=== PATIENT | female | born 1955 | race Caucasian/White ===

== ENCOUNTER 2019-12-29 06:20 | Inpatient (IN) ==
--- NOTE | 2019-11-30 09:25 | PAT Medication Instructions ---
Medication Instructions Date of Service November 30, 2019 Home Medications Medications Hair, Skin, Nails with Biotin 1 dose PO DAILY ascorbic acid (vitamin C) [Vitamin C] 500 mg PO QAM benzonatate 200 mg PO TID PRN celecoxib [Celebrex] 200 mg PO QAM famotidine 20 mg PO DAILY PRN fluticasone propionate 1 spray INTRANASAL DAILY hydrochlorothiazide 25 mg PO UD lisinopril 20 mg PO QPM multivitamin 1 tab PO QAM tramadol 50 mg PO TID trazodone 0.25 tab PO HS cholecalciferol (vitamin D3) [Vitamin D3] 2,000 unit PO QAM ASK your surgeon for instructions celecoxib [Celebrex] 200 mg PO QAM STOP taking 2 weeks before surgery Hair, Skin, Nails with Biotin 1 dose PO DAILY DO NOT take the morning of surgery cholecalciferol (vitamin D3) [Vitamin D3] 2,000 unit PO QAM multivitamin 1 tab PO QAM hydrochlorothiazide 25 mg PO UD ascorbic acid (vitamin C) [Vitamin C] 500 mg PO QAM benzonatate 200 mg PO TID PRN Take morning of surgery With a small sip of water, OTHERWISE NOTHING TO EAT OR DRINK AFTER MIDNIGHT: tramadol 50 mg PO TID (okay to take up to 4 hours prior to surgery if needed) famotidine 20 mg PO DAILY PRN (if needed) fluticasone propionate 1 spray INTRANASAL DAILY (if needed) Take evening before surgery tramadol 50 mg PO TID trazodone 0.25 tab PO HS lisinopril 20 mg PO QPM benzonatate 200 mg PO TID PRN (if needed) Other Notes If you have any questions please call us at [phone] or [phone] or [phone] or [phone]
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
[2019-11-30 12:33] LABS: Appearance Urine Clear (Clear); Bilirubin Urine Negative (Negative); Blood Urine Negative (Negative); Color Urine Yellow; Glucose Urine UA Negative (Negative); Ketones Urine Trace (Negative); Leukocyte Esterase Urine Negative (Negative); Nitrite Urine Negative (Negative); Protein Urine Negative (Negative); Specific Gravity Urine 1.014 (1.000-1.030); Urobilinogen Urine Negative (Negative); pH Urine 6.5 (4.5-7.5)
[2019-11-30 12:34] LABS: Basophils # (auto) 0.06 K/uL (0-0.2); Basophils % (auto) 0.6 %; Eosinophils # (auto) 0.12 K/uL (0-0.5); Eosinophils % (auto) 1.3 %; Hematocrit (blood only) 42.1 % (37-47); Hemoglobin 14.6 g/dL (12.0-16.0); Immature Granulocytes # (auto) 0.03 K/uL (0.00-0.02); Immature Granulocytes % (auto) 0.3 %; Lymphocytes # (auto) 2.34 K/uL (1.2-3.4); Lymphocytes % (auto) 24.9 %; Mean Corpuscular Hgb Conc 34.7 g/dL (32-36); Mean Corpuscular Volume 86.6 fL (80-100); Mean Platelet Volume 10.2 fL (7.4-10.4); Monocytes # (auto) 0.63 K/uL (0.11-0.59); Monocytes % (auto) 6.7 %; Neutrophils % (auto) 66.2 %; Platelet Count 300 K/uL (130-400); RDW Coefficient of Variation 12.7 % (11.5-14.5); RDW Standard Deviation 40.7 fL (36.4-46.3); Red Blood Count 4.86 M/uL (4.2-5.4); White Blood Count 9.38 K/uL (4.8-10.8)
--- NOTE | 2019-11-30 12:41 | XRay Report ---
TWO VIEW CHEST CLINICAL HISTORY: Preoperative examination. FINDINGS: PA and lateral chest radiographs are obtained. No prior studies are available for compariso n at the time of dictation. The cardiomediastinal silhouette is unremarkable. The lungs and pleural spaces are clear. There is no pneumothorax. The skeletal structures are osteopenic. The bony thorax a ppears intact. Degenerative change is noted throughout the thoracic spine. IMPRESSION: No active disease in the chest. ACT 112: Negative or not required by law. Electronically signed by: Aris Benjamin M.D. 11/30/2019 12:40 PM
[2019-11-30 12:44] LABS: INR 1.1 (0.9-1.1); Partial Thromboplastin Time 26.6 Seconds (21.0-31.0); Prothrombin Time 10.9 Seconds (9.0-12.0)
[2019-11-30 13:10] LABS: Estimated Average Glucose 111 mg/dl; Hemoglobin A1C 5.5 % (4.5-5.6)
[2019-11-30 13:32] LABS: Albumin Level 4.2 gm/dl (3.4-5.0); BUN Creatinine Ratio 21.4 (10-20); Calcium 9.8 mg/dl (8.5-10.1); Creatinine Clr Calc Pharmacy 67.9 ml/min; Est GFR (Non-African American) 62.2; Potassium 3.9 mmol/L (3.5-5.1)
--- NOTE | 2019-11-30 15:06 | Electrocardiogram Report ---
Test Reason : Blood Pressure : / mmHG Vent. Rate : 080 BPM Atrial Rate : 080 BPM P-R Int : 166 ms QRS Dur : 096 ms QT Int : 390 ms P-R-T Axes : 061 061 052 degrees QTc Int : 449 ms Normal sinus rhythm Incomplete right bundle branch block Borderline ECG No previous ECGs available Confirmed by Joshua Dubose ([id number]) on 11/30/2019 3:06:17 PM Referred By: Chun Felipe Confirmed By:Joshua Dubose
--- NOTE | 2019-12-28 15:14 | History and Physical Report ---
DATE OF ADMISSION: 12/29/2019 CHIEF COMPLAINT: Chronic right knee pain. HISTORY OF PRESENT ILLNESS: This is a 64-year-old female patient of Dr. Felipe'jane complaining of chronic right knee pain, longstanding, now progressively getting worse. The patient has failed conservative treatment including anti-inflammatories, tramadol, intra-articular injections, home exercise program and the use of taping. The patient has been diagnosed with end-stage osteoarthritis per clinical and radiographic exams and wishes to proceed with a right total knee arthroplasty. PAST MEDICAL HISTORY: Hypertension, irregular heartbeat, anxiety, peripheral neuropathy, spine problems, neck problems, sciatica, acid reflux, obesity. SOCIAL HISTORY: Nonsmoker, nondrinker. PAST SURGICAL HISTORY: Low back fusion, lymph node removal under left arm, eye surgery, right breast biopsy, tonsillectomy, hysterectomy and wisdom teeth. FAMILY HISTORY: Noncontributory. REVIEW OF SYSTEMS: Chronic right knee pain and instability. Otherwise, denies any shortness of breath, chest pain, nausea, vomiting or other joint complaints. MEDICATIONS: 1. Hydrochlorothiazide 25 mg daily. 2. Tramadol 50 mg every 6 hours as needed. 3. Fluticasone proprionate 50 mcg 1 spray each nostril daily. 4. Lisinopril 20 mg daily. 5. Celebrex 200 mg 1 tablet daily. 6. Trazodone 1/4 tablet daily at night. ALLERGIES: ERYTHROMYCIN, NICKEL, MACRODANTIN, MACROCRYSTALLINE, NUTS, PENICILLIN, SHELLFISH, SULFA. PHYSICAL EXAMINATION: GENERAL: Well-developed, well-nourished 64-year-old female in no acute distress. She is alert and oriented x3 and pleasant. HEENT: Normocephalic, atraumatic. Extraocular motions are intact. Pupils are equal and reactive to light. HEART: Regular rate and rhythm, no murmurs. LUNGS: Clear. ABDOMEN: Soft, nontender, bowel sounds present. EXTREMITIES: Right knee limited range of motion of 0-120 with medial joint line tenderness. The patient has a varus deformity with effusion. She has 5/5 strength. NEUROLOGIC: Neurovascularly, she is intact in her right lower extremity. DIAGNOSES: Right knee end-stage osteoarthritis, hypertension, irregular heartbeat, anxiety, peripheral neuropathy, spine problems, neck problems, sciatica, acid reflux, obesity. PLAN: The patient was advised of her diagnosis. Indications, risks, benefits, postop course have all been reviewed. The patient wished to proceed with a right total knee arthroplasty. Necessary consent forms, preoperative testing and clearances will be obtained.
[~2019-12-29 06:20] MED LIST: ACETAMINOPHEN 500 MG TAB PO SCH; FAMOTIDINE 20 MG TAB PO SCH; GABAPENTIN 600 MG DOSE PO SCH; LR 500ML BOLUS, THEN 15ML/HR IV SCH; METOCLOPRAMIDE HCL 10 MG TABLET PO SCH; ROPIVACAINE 0.5% HCL/PF 150 MG, BUPIVACAINE 0.5% MPF 30 ML, EPINEPHrine 30MG/30ML (OR U... INFIL SCH; SCOPOLAMINE 1.5 MG TDSY TD SCH; VANCOMYCIN HCL 1,500 MG in SODIUM CHLORIDE 0.9% 500 ML IV SCH; dexAMETHasone 4 MG TAB PO SCH
[2019-12-29] MEDS ORDERED: BUPIVACAINE 0.5 % 5 MG/1 ML PF 10ML VIAL ONE (06:24)
[2019-12-29] MEDS ORDERED: BUPIVACAINE 0.25% 30 ML VIAL ONE (06:24)
[2019-12-29] MEDS ORDERED: BUPIVACAINE/EPINEPHRINE 0.25% 1:200,000 30 ML VIAL ONE (06:26)
--- NOTE | 2019-12-29 07:02 | History & Physical Bridge Note ---
Date of Service December 29, 2019 History & Physical Bridge Note I have examined the patient, reviewed the History & Physical and in the interval since the performance of the History & Physical I have noted the following changes of clinical significance: no changes noted
[2019-12-29] MEDS ORDERED: MIDAZOLAM HCL 1 MG/ML 2ML VIAL ONE (07:06)
[2019-12-29] MEDS ORDERED: fentaNYL citrate 100 MCG/2 ML VIAL ONE (07:06)
[2019-12-29] MEDS ORDERED: PROPOFOL IV EMULSION 10 MG/ML 20 ML VIAL IV ONE (07:06)
[2019-12-29] MEDS ORDERED: ORTHO JOINT ANESTHETIC ONE (07:12)
[2019-12-29] MEDS ORDERED: BACITRACIN INJ 50,000 UNIT VIAL ONE (07:12)
--- NOTE | 2019-12-29 10:26 | Operative Report ---
Post Operative Report Pre & Post Diagnosis Operation Date: 12/29/19 08:40 Pre-Op Diagnosis: RIGHT KNEE OSTEOARTHRITIS Post-Op Diagnosis: RIGHT KNEE OSTEOARTHRITIS I identified the patient and participated in the time-out.: Yes Procedure Operation Date: 12/29/19 08:40 Actual Procedures p Right Total Knee Arthroplasty(Right) - Chun Felipe MD Surgeon Chun Felipe MD Sample Coordinator Morris FELDMAN Estimated Blood Loss 5 Findings Consistent with Post-Op Diagnosis Specimens Bone cuts Drains 2 Hemovac Anesthesia Type MAC Spinal Regional Complications none Disposition Accompanied Patient To Recovery: No Disposition: Recovery Room Indications 64-year-old female progressive right knee pain failed conservative management radiographs demonstrate grade 4 patellofemoral OA medial compartment and moderate medial compartment OA tibiofemoral joint. Description of Procedure The patient was taken to the operating room and anesthetized under spinal MAC regional. Patient was placed supine on the the operating table. A pneumatic tourniquet was placed about the right upper thigh. The knee exam demonstrated slight varus alignment to the knee 0 through 120 degrees range of motion no instability patellofemoral crepitation small effusion. The involved leg was elevated exsanguinated with Esmarch bandage and the pneumatic tourniquet was raised to 325 millimeters mercury. A longitudinal incision was made across the anterior knee. Skin flaps were elevated. An incision was made into the medial retinaculum and extended up into the mid third of the quadriceps tendon and extended down to the tibial tubercle. Intra-articular findings demonstrated grade 4 eburnated bone patellofemoral joint along medial facet of the patella and medial femoral condyle. In the tibiofemoral joint the medial femoral condyle was completely down exposed bone. There was medial meniscus tear. The knee was exposed by excising cruciate ligaments and menisci. The infrapatellar fat pad was resected. The fat pad over the anterior femur at the upper aspect of the articular surface was resected for placement of the component in that area. A subperiosteal peel lateral release was performed around the patella. The [employer] journey 2.0 posterior stabilized total knee arthroplasty system was utilized for the procedure. The custom femoral cutting guide was pinned in position. The distal femoral cut was made. The size 4, 5 in 1 cutting block was placed. The anterior posterior and chamfer cuts were made. T he knee was extended and a free hand cut technique was performed to the patella. The patella with was measured and the width was reproduced using a 32 symmetrical patella component. 3 drill holes are made for the patella component pegs. The tibia was then subluxed. The custom tibial cutting block was pinned in position and the proximal tibial cut was made with the oscillating saw. The size 4 tibial trial was externally rotated in line with the tibial tubercle and pinned in position. The punch for the stem was used. The femoral trial was inserted and centered the notch cutting devices were used and the collet was placed. Tibial trials were used for the insert. The size 10 trial gave balanced ligaments through full range of motion. Patella tracking was assessed with range of motion. The patella tracked centrally. The trials were removed. The Orthomix anesthetic cocktail was injected per protocol. The cut bone surfaces and soft tissue were copiously irrigated with antibiotic solution with bacitracin. The final components were cemented with Simplex cement. The final components were [employer] journey size 4 posterior stabilized right femoral component, 4 tibial baseplate, 10 mm posterior stabilized polyethylene insert. 32 symmetrical patella. When the cement cured the knee was copiously irrigated with pulsatile lavage antibiotic solution with bacitracin. 2 drains were brought out laterally connected to Hemovac. The quadriceps tendon and medial retinaculum were closed with interrupted [id number] #1 Vicryl sutures. The knee was taken through full range of motion and repair was secure. The subcutaneous tissues were closed with interlocking absorbable suture. The skin was closed with Monocryl and surgical glue system. A sterile dressing was applied. The tourniquet was let down and the patient had good capillary refill to the extremity. The patient tolerated the procedure well. My physician dyer assistant Morris Dennison assisted in the procedure including prepping draping leg positioning soft tissue retraction instrument management and assisted in the closure ,dressings application and will participate in postoperative care the patient. I attest to the content of the Intraoperative Record and any orders documented therein. Any exceptions are noted below.
[2019-12-29] MEDS ORDERED: LIDOCAINE HCL 2% 2 ML VIAL/AMP(20MG/ML) INFIL ONE (11:00)
--- NOTE | 2019-12-29 11:04 | Anesthesiology Progress Note ---
Date of Service December 29, 2019 Anesthesia Post Procedure Vital Signs Vital Signs: Temp Pulse Pulse Resp BP Pulse Ox 12/29/19 11:00 86 14 110/71 98 12/29/19 10:50 36.2 C L 95 H 14 119/75 98 12/29/19 07:06 36.7 C 91 H 16 148/94 H 99 Pain Intensity Lower Back: Pain Intensity: 4 Transfer of Care Handoff Completed per policy Notes Mental Status: alert / awake / arousable and participated in evaluation Patient Amnestic to Procedure: Yes Nausea / Vomiting: adequately controlled Pain: adequately controlled Airway Patency, RR, SpO2: stable & adequate BP & HR: stable & adequate Hydration State: stable & adequate Anesthetic Complications: no major complications apparent and Pt Satisfied with anesthetic care
[2019-12-29] MEDS ORDERED: ONDANSETRON INJ 2 MG/ML 2 ML VIAL IV PRN ×2 (11:11→11:41)
[2019-12-29] MEDS ORDERED: ATROPINE SULFATE 0.1 MG/ML 10ML SYR IV PRN (11:11)
[2019-12-29] MEDS ORDERED: ePHEDrine sulfate 50 MG/ML AMP IV PRN (11:11)
[2019-12-29] MEDS ORDERED: fentaNYL citrate 100 MCG/2 ML VIAL IV PRN (11:11)
--- NOTE | 2019-12-29 11:32 | XRay Report ---
XR knee RT 1 or 2V routine HISTORY: 64 years-old Female Surgical Post Op chronic right knee pain COMPARISON: None TECHNIQUE: 2 views the right knee FINDINGS: Right knee total joint arthroplasty and patella resurfacing. Satisfactory alignment without acute fra cture, dislocation or retained foreign body. Expected postoperative soft tissue swelling and deep tis parvez air with surgical drainage catheter. IMPRESSION: Right knee total joint arthroplasty with expected postoperative findings. ACT 112: Negative or not required by law. The above report was generated using voice recognition software. It may contain grammatical, syntax o r spelling errors. Electronically signed by: Ankur Sears M.D. 12/29/2019 11:30 AM
[2019-12-29] MEDS ORDERED: SODIUM CHLORIDE 0.9% 1000ML 1,000 ML IV SCH (11:41)
[2019-12-29] MEDS ORDERED: HYDROmorphone INJ 0.5 MG/0.5 ML SYR IV PRN (11:41)
[2019-12-29] MEDS ORDERED: NALOXONE HCL 0.4 MG/1 ML VIAL/CARP IV PRN (11:41)
[2019-12-29] MEDS ORDERED: VANCOMYCIN CONSULT ACTIVE PRN (11:41)
[2019-12-29] MEDS ORDERED: MAGNESIUM HYDROXIDE SUSP 30 ML UDC PO PRN (11:41)
[2019-12-29] MEDS ORDERED: bisacodyL 10 MG SUPP PR PRN (11:41)
[2019-12-29] MEDS: ACETAMINOPHEN 500 MG TAB PO SCH ×2 (14:23→21:16)
[2019-12-29] MEDS ORDERED: VANCOMYCIN HCL 1,500 MG in SODIUM CHLORIDE 0.9% 500 ML IV SCH (15:00)
[2019-12-29] MEDS ORDERED: CHECK SCOPOLAMINE PATCH PLACEMENT SCH (16:00)
[2019-12-29] MEDS: FERROUS GLUCONATE 324 MG TAB PO SCH (17:09)
[2019-12-29] MEDS: OXYCODONE HCL IR 5 MG TAB (IMMEDIATE RELEASE) PO PRN (19:17)
[2019-12-29] MEDS: DOCUSATE SODIUM 100 MG CAP PO SCH (21:15)
[2019-12-29] MEDS: lisinopriL 20 MG TAB PO SCH (21:15)
[2019-12-29] MEDS: CeleBREX 200 MG CAP PO SCH (21:15)
[2019-12-29] MEDS: TRAZODONE HCL 50 MG TAB PO SCH (21:16)
[2019-12-29] MEDS: SENNA 8.6 MG TAB PO SCH (21:16)
[2019-12-30] MEDS: OXYCODONE HCL IR 5 MG TAB (IMMEDIATE RELEASE) PO PRN ×3 (01:55→15:13)
[2019-12-30] MEDS: ACETAMINOPHEN 500 MG TAB PO SCH ×3 (05:41→21:32)
[2019-12-30 05:57] LABS: Hematocrit (blood only) 30.2 % (37-47); Hemoglobin 10.1 g/dL (12.0-16.0); Mean Corpuscular Hemoglobin 29.6 pg (25-34); Mean Corpuscular Hgb Conc 33.4 g/dL (32-36); Mean Corpuscular Volume 88.6 fL (80-100); Mean Platelet Volume 11.1 fL (7.4-10.4); Platelet Count 216 K/uL (130-400); RDW Standard Deviation 41.9 fL (36.4-46.3); Red Blood Count 3.41 M/uL (4.2-5.4); White Blood Count 14.27 K/uL (4.8-10.8)
[2019-12-30 06:23] LABS: BUN Creatinine Ratio 23.6 (10-20); Calcium 8.6 mg/dl (8.5-10.1); Creatinine Clr Calc Pharmacy 80.3 ml/min; Est GFR (African American) 88.3; Est GFR (Non-African American) 76.2; Potassium 3.8 mmol/L (3.5-5.1)
--- NOTE | 2019-12-30 08:11 | Anesthesiology Progress Note ---
Date of Service December 30, 2019 Anesthesia Post Procedure Vital Signs Vital Signs: Temp Pulse Pulse Resp BP Pulse Ox 12/30/19 07:43 36.7 C 63 14 120/76 97 12/30/19 02:59 36.8 C 60 16 95/61 L 95 12/29/19 23:08 36.7 C 69 16 98/64 L 97 12/29/19 19:36 36.7 C 54 L 16 99/64 L 100 12/29/19 15:41 36.7 C 55 L 16 107/71 98 12/29/19 14:26 36.4 C L 62 16 109/72 98 12/29/19 13:38 36.3 C L 72 16 107/71 98 12/29/19 12:21 61 16 115/77 100 12/29/19 12:00 36.4 C L 55 L 16 115/75 100 12/29/19 11:30 36.4 C L 53 L 14 113/73 98 12/29/19 11:20 36.6 C 73 14 124/77 99 12/29/19 11:10 82 14 123/77 99 12/29/19 11:00 86 14 110/71 98 12/29/19 10:50 36.2 C L 95 H 14 119/75 98 Pain Intensity Lower Back: Pain Intensity: 4 Right Knee: Pain Intensity: 4 Notes Mental Status: alert / awake / arousable and participated in evaluation Patient Amnestic to Procedure: Yes Nausea / Vomiting: adequately controlled Pain: adequately controlled Airway Patency, RR, SpO2: stable & adequate BP & HR: stable & adequate Hydration State: stable & adequate Neuraxial Anesthesia: was administered and sensory block resolved Anesthetic Complications: no major complications apparent and Pt Satisfied with anesthetic care
[2019-12-30] MEDS: FERROUS GLUCONATE 324 MG TAB PO SCH ×2 (09:17→17:31)
[2019-12-30] MEDS: CeleBREX 200 MG CAP PO SCH ×2 (09:18→20:40)
[2019-12-30] MEDS: MULTIVITAMIN TAB PO SCH (09:18)
[2019-12-30] MEDS: DOCUSATE SODIUM 100 MG CAP PO SCH ×2 (09:18→20:41)
[2019-12-30] MEDS: FLUTICASONE PROPIONATE NA SPR 16 GM BTL SCH (09:18)
[2019-12-30] MEDS: CHOLECALCIFEROL 1,000 UNITS 25 MCG TAB PO SCH (09:19)
[2019-12-30] MEDS: RIVAROXABAN 10 MG TABLET PO SCH (09:20)
--- NOTE | 2019-12-30 10:04 | Orthopedic Progress Note ---
Date of Service December 30, 2019 Assessment & Plan (1) Arthritis of right knee: POD #1, Right TKA PT/ OT DVT proph- Xarelto D/C planning- Home w OPPT Admission and Anticipated Discharge Date Admission Date: December 29, 2019 Subjective POD #1, Doing well. Denies SOB, CP, N/V. Pain controlled well. Wishes OPPT on discharge Physical Exam Physical Exam: Right knee dressings c/d/i, no drainage. Toes/ ankle mobile. No calf tenderness. A&Ox3. Results & Data ([facility]) Vital Signs (Past 12 Hours) Vital Signs Temp Pulse Resp BP Pulse Ox 12/30/19 07:43 36.7 C 63 14 120/76 97 12/30/19 02:59 36.8 C 60 16 95/61 L 95 12/29/19 23:08 36.7 C 69 16 98/64 L 97
[2019-12-30] MEDS: SENNA 8.6 MG TAB PO SCH (20:39)
[2019-12-30] MEDS: lisinopriL 20 MG TAB PO SCH (20:39)
[2019-12-30] MEDS: TRAZODONE HCL 50 MG TAB PO SCH (20:40)
[2019-12-31] MEDS: ACETAMINOPHEN 500 MG TAB PO SCH ×2 (05:16→14:10)
--- NOTE | 2019-12-31 08:04 | Orthopedic Progress Note ---
Date of Service December 31, 2019 Assessment & Plan (1) Arthritis of right knee: POD #2, Right TKA PT/ OT DVT proph- Xarelto D/C planning- Home w OPPT Will stop oxycodone, start Tramadol, if no dizzy episodes can go home this afternoon. Admission and Anticipated Discharge Date Admission Date: December 29, 2019 Subjective POD #2, Doing well. Denies SOB, CP, N/V. States she is getting very mild dizzinesss in relationship to oxycodone. States she is usually on tramadol at home. Did well in PT Pain controlled well. Wishes OPPT on discharge Physical Exam Physical Exam: Right knee incision c/d/i, no erythema, no drainage. Toes/ ankle mobile. NO calf tenderness. A&Ox3.N/V+. Results & Data ([facility]) Vital Signs (Past 12 Hours) Vital Signs Temp Pulse Pulse Resp BP Pulse Ox 12/31/19 07:56 36.4 C L 76 14 104/56 L 97 12/30/19 22:52 36.4 C L 66 16 112/74 99
[2019-12-31] MEDS ORDERED: TRAMADOL HCL 50 MG TABLET PO PRN (08:13)
[2019-12-31] MEDS: FERROUS GLUCONATE 324 MG TAB PO SCH (08:41)
[2019-12-31] MEDS: FLUTICASONE PROPIONATE NA SPR 16 GM BTL SCH (08:41)
[2019-12-31] MEDS: DOCUSATE SODIUM 100 MG CAP PO SCH (08:42)
[2019-12-31] MEDS: RIVAROXABAN 10 MG TABLET PO SCH (09:26)
[2019-12-31] MEDS: MULTIVITAMIN TAB PO SCH (09:26)
[2019-12-31] MEDS: CHOLECALCIFEROL 1,000 UNITS 25 MCG TAB PO SCH (09:26)
[2019-12-31] MEDS: CeleBREX 200 MG CAP PO SCH (09:26)
[2019-12-31] MEDS ORDERED: OXYCODONE HCL IR 5 MG TAB (IMMEDIATE RELEASE) PO ONE (14:06)
--- NOTE | 2020-01-05 11:53 | Discharge Summary (DS) ---
DISCHARGE DIAGNOSIS: Degenerative joint disease, right knee. SECONDARY DIAGNOSES: Hypertension, history of irregular heartbeat, anxiety, peripheral neuropathy, degenerative spine disease, sciatica, gastroesophageal reflux disease, obesity. CONSULTS: None. COMPLICATIONS: None. PROCEDURES: Right total knee arthroplasty performed by Dr. Felipe on 12/29/2019. BRIEF HISTORY: As dictated in the history and physical. HOSPITAL SUMMARY: The patient was admitted on the above-noted date and had the above-noted surgery performed, which she tolerated well. On the first postoperative day, the patient was doing well. Denied shortness of breath, chest pain, nausea or vomiting. Pain is controlled. The patient was planning for outpatient PT on discharge. Dressings were intact. Toes were mobile. No calf tenderness. Vital signs were stable. She was afebrile. She was started on PT, OT protocols and continued on DVT prophylaxis and pain management. By her second postoperative day, she was doing well. Denied shortness of breath, chest pain, nausea and vomiting. She was getting some mild dizziness in relationship to her oxycodone and stated that she used tramadol at home. She did well in PT and pain was controlled. Incision was clean, dry and intact. No erythema. Toes were mobile. No calf tenderness. Vital signs were stable. She was afebrile. She was changed over to tramadol and was otherwise stable and felt she could be discharged to home. For further review, please see chart. LABORATORY AND X-RAY DATA: As per chart. DISCHARGE INSTRUCTIONS: The patient was discharged to home in satisfactory condition on 12/31/2019. DIET: Regular. ACTIVITY: Full weightbearing as tolerated on the affected extremity with walker. Follow TK instruction sheets and special care instructions as noted. Follow up with Dr. Felipe in 2 weeks. The patient is to call for appointment if one has not been made for you. DISCHARGE MEDICATIONS: Acetaminophen 1000 mg p.o. q. 8 hours, Celebrex 200 mg p.o. b.i.d., ferrous gluconate 324 mg p.o. b.i.d., tramadol 50 mg p.o. q. 4 hours p.r.n., Xarelto 10 mg p.o. daily. Resume home meds as listed. Stop taking previous Celebrex dose and previous tramadol dose.
== END 2019-12-31 16:26 | disposition home or self-care (01) | DRG 470 ==
LOC: ASU 06:20 → 3E 10:57

== ENCOUNTER 2022-02-11 05:57 | Inpatient (IN) ==
--- NOTE | 2022-01-24 16:31 | PAT Medication Instructions ---
Medication Instructions Date of Service January 24, 2022 Home Medications Medication Instructions Recorded celecoxib 200 mg capsule (Celebrex) 200 mg PO BID 30 Days #60 cap 12/31/19 ascorbic acid (vitamin C) 500 mg tablet (Vitamin C) 1,000 mg PO QAM ascorbic acid 7.5 mg-vit E 7.5 unit-biotin 1,250 mcg chewable tablet (Hair,Skin,Nails with Biotin) 1 dose PO QAM benzonatate 200 mg capsule 200 mg PO TID PRN famotidine 20 mg tablet 20 mg PO DAILY PRN fluticasone propionate 50 mcg/actuation nasal spray,suspension 2 spray INTRANASAL QAM lisinopril 20 mg tablet 30 mg PO QPM multivitamin 1 tab PO QAM trazodone 50 mg tablet 0.25 tab PO HS celecoxib 200 mg capsule (Celebrex) 200 mg PO BID acetaminophen 500 mg tablet 500 mg PO HS cholecalciferol (vitamin D3) 125 mcg (5,000 unit) tablet (Vitamin D3) 10,000 mcg PO QAM ciclopirox 8 % topical solution 1 applic TOPICAL HS tramadol 50 mg tablet 50 mg PO TID zinc 15 mg tablet 30 mg PO BID ASK your surgeon for instructions celecoxib 200 mg capsule (Celebrex) 200 mg PO BID STOP taking 2 weeks before surgery (as soon as possible if surgery is within 2 weeks) ascorbic acid 7.5 mg-vit E 7.5 unit-biotin 1,250 mcg chewable tablet (Hair,Skin,Nails with Biotin) 1 dose PO QA STOP taking 24 hours before surgery ciclopirox 8 % topical solution 1 applic TOPICAL HS DO NOT take the morning of surgery ascorbic acid (vitamin C) 500 mg tablet (Vitamin C) 1,000 mg PO QAM benzonatate 200 mg capsule 200 mg PO TID PRN fluticasone propionate 50 mcg/actuation nasal spray,suspension 2 spray INTRANASAL QAM multivitamin 1 tab PO QAM cholecalciferol (vitamin D3) 125 mcg (5,000 unit) tablet (Vitamin D3) 10,000 mcg PO QAM zinc 15 mg tablet 30 mg PO BID Take morning of surgery With a small sip of water, OTHERWISE NOTHING TO EAT OR DRINK AFTER MIDNIGHT: famotidine 20 mg tablet 20 mg PO DAILY PRN(if needed) tramadol 50 mg tablet 50 mg PO TID(okay to take up to 4 hours prior to surgery if needed) Take evening before surgery benzonatate 200 mg capsule 200 mg PO TID PRN(if needed) lisinopril 20 mg tablet 30 mg PO QPM trazodone 50 mg tablet 0.25 tab PO HS acetaminophen 500 mg tablet 500 mg PO HS tramadol 50 mg tablet 50 mg PO TID zinc 15 mg tablet 30 mg PO BID Other Notes If you have any questions please call us at [phone] or [phone] or [phone] or [phone]
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
[~2022-02-11 05:57] MED LIST changes: -ACETAMINOPHEN 500 MG TAB PO SCH; -FAMOTIDINE 20 MG TAB PO SCH; -GABAPENTIN 600 MG DOSE PO SCH; -LR 500ML BOLUS, THEN 15ML/HR IV SCH; -METOCLOPRAMIDE HCL 10 MG TABLET PO SCH; +MISSING PHYSICIAN SIGNATURE ON ORDER SCH; -ROPIVACAINE 0.5% HCL/PF 150 MG, BUPIVACAINE 0.5% MPF 30 ML, EPINEPHrine 30MG/30ML (OR U... INFIL SCH; -SCOPOLAMINE 1.5 MG TDSY TD SCH; -VANCOMYCIN HCL 1,500 MG in SODIUM CHLORIDE 0.9% 500 ML IV SCH; -dexAMETHasone 4 MG TAB PO SCH
[2022-02-11] MEDS ORDERED: GABAPENTIN 300 MG CAP PO SCH (06:00)
[2022-02-11] MEDS ORDERED: CeleBREX 200 MG CAP PO SCH (06:00)
[2022-02-11] MEDS ORDERED: SCOPOLAMINE 1 MG TDSY TD SCH (06:00)
[2022-02-11] MEDS ORDERED: ACETAMINOPHEN 500 MG TAB PO SCH (06:00)
[2022-02-11] MEDS ORDERED: LR 15ML/HR IV SCH (06:00)
[2022-02-11] MEDS ORDERED: CLINDAMYCIN 600 MG/54 ML BAG IV SCH (06:00)
[2022-02-11] MEDS ORDERED: SUGAMMADEX SODIUM 200 MG/2 ML VIAL IV ONE (06:22)
[2022-02-11] MEDS ORDERED: MIDAZOLAM HCL 1 MG/ML 2ML VIAL ONE (07:07)
[2022-02-11] MEDS ORDERED: HYDROmorphone INJ 2 MG/ML SYR/VIAL ONE (07:07)
[2022-02-11] MEDS ORDERED: KETAMINE 50 MG/5 ML SYRINGE ONE (07:07)
[2022-02-11] MEDS ORDERED: ceFAZolin 330 MG/ML 1 GM VIAL ONE (07:09)
[2022-02-11] MEDS ORDERED: BUPIVACAINE/EPINEPHRINE 0.25% 1:200,000 30 ML VIAL ONE (07:09)
[2022-02-11] MEDS ORDERED: PROMETHAZINE HCL 6.25 MG in SODIUM CHLORIDE 0.9% 50 ML IV PRN (07:20)
[2022-02-11] MEDS ORDERED: ePHEDrine sulfate 50 MG/ML AMP IV PRN (07:20)
[2022-02-11] MEDS ORDERED: ONDANSETRON INJ 2 MG/ML 2 ML VIAL IV PRN ×2 (07:20→11:09)
[2022-02-11] MEDS ORDERED: ATROPINE SULFATE 0.1 MG/ML 10ML SYR IV PRN (07:20)
[2022-02-11] MEDS ORDERED: HYDROmorphone INJ 2 MG/ML SYR/VIAL IV PRN (07:20)
--- NOTE | 2022-02-11 07:32 | History & Physical Bridge Note ---
Date of Service February 11, 2022 History & Physical Bridge Note I have examined the patient, reviewed the History & Physical and in the interval since the performance of the History & Physical I have noted the following changes of clinical significance: no changes noted
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
[2022-02-11] MEDS ORDERED: ROCURONIUM BROMIDE 10 MG/ML 5 ML VIAL IV ONE (08:16)
[2022-02-11] MEDS ORDERED: GLYCOPYRROLATE 0.2 MG/ML VIAL ONE (08:16)
[2022-02-11] MEDS ORDERED: ONDANSETRON INJ 2 MG/ML 2 ML VIAL ONE (08:16)
[2022-02-11] MEDS ORDERED: LIDOCAINE 2% 2 ML VIAL/AMP(20MG/ML) INFIL ONE (08:16)
[2022-02-11] MEDS ORDERED: PROPOFOL IV EMULSION 10 MG/ML 20 ML VIAL IV ONE (08:16)
[2022-02-11] MEDS ORDERED: DEXAMETHASONE SOD INJ 4 MG/ML VIAL ONE (08:16)
[2022-02-11] MEDS ORDERED: FLOSEAL HEMOSTATIC MATRIX 10ML TOP ONE (09:10)
[2022-02-11] MEDS ORDERED: PHENYLEPHRINE HCL 10 MG/ML VIAL ONE (09:15)
--- NOTE | 2022-02-11 09:27 | Operative Report ---
Post Operative Report Pre & Post Diagnosis Operation Date: 02/11/22 07:45 Pre-Op Diagnosis: Spinal Stenosis of Lumbar Region with Radiculopath Post-Op Diagnosis: Spinal Stenosis of Lumbar Region with Radiculopath I identified the patient and participated in the time-out.: Yes Procedure Operation Date: 02/11/22 07:45 Actual Procedures #1 removal of posterior instrumentation L4-5. #2 exploration of fusion L4-5. #3 lumbar decompression with bilateral medial facetectomies and foraminotomies L2-L3 L3-L4 per #4 posterior spinal fusion L3-L4. #5 placement posterior instrumentation L3-4. #6 interbody fusion L3-L4. #7 placement of Spira 12 x 22 mm cage at L3-L4. #8 placement locally harvested morselized autograft in the posterior gutters. #9 placement of I factor combined with V toss in the posterior lateral gutters and interbody space. Surgeon Hamilton Evans, DO Product Assurance Engineer Aniya Tilley Estimated Blood Loss 100 Findings See Below The patient is 5 foot 5 inches tall weighing over 87 kg with a BMI of 32. Patient's body habitus did contribute to significant technical difficulty requiring deeper retractors longer instruments in order to perform her procedure. This at least 25% increased operative time. Specimens None Indications This is a 66-year-old female presents with above-mentioned diagnosis after failing course of nonoperative care she is here for surgical invention. Description of Procedure Patient was met with identified informed consent obtained. Patient was then taken to the operative suite underwent intubation placed in a prone position on a Romeo table top Fadi frame. All bony prominences well-padded eyes inspected to ensure no external pressure placed upon the. This point the lumbar spine is prepped and draped in a normal sterile fashion. Sharp dissection with the assistance of Bovie cautery was performed down to and exposing the lamina transverse processes of L3 and instrumentation at L4-L5 bilaterally. And proceeded move the hardware bilaterally explore the fusion mass noting it to be mature and intact. Then performed a complete laminectomy of L3 partial laminectomy of L2 including bilateral medial facetectomies and foraminotomies addressing all spinal stenosis. Pedicle screws were then placed in L3-L4 bilaterally with assistance of fluoroscopy and proper sized joy placed. By way of a transforaminal approach on the right complete discectomy of L3-L4 was performed endplates curetted to subcortical bleeding bone and a 12 x 22 mm spiral cage filled with I factor tapped in position. The rods were then compressed locked in final position bilaterally. The transverse processes of L3 and L4 burred to subcortical bleeding bone. I factor combined with V toss and locally harvested morselized autograft was placed in the posterior gutters. 15 round ABIOLA drain inserted. The incision was then closed with 1 Vicryl the fascia 2-0 Vicryl subcutaneously and 4 Monocryl for final skin closure. Steri-Strip sterile dressings placed. Patient waken taken PACU stable condition. Please note spinal cord monitoring was last that the procedure no changes noted. Lastly Aniya Tilley was present at the entire surgery and while the patient positioning complex portions of the surgery and final skin closure. I attest to the content of the Intraoperative Record and any orders documented therein. Any exceptions are noted below.
--- NOTE | 2022-02-11 09:47 | Fluoroscopy Report ---
FL lumbar spine 2-3V CLINICAL HISTORY: L3-L4 DECOMPRESSION/FUSION L4-L5 HW REMOVAL COMPARISON STUDY: None. FLUOROSCOPY TIME: 17.4 seconds. FLUOROSCOPIC IMAGES: 2 FINDINGS: Previous L4-L5 discectomy with interbody spacer is noted. Interval L3-L4 discectomy, interb ayanna spacer placement, posterior decompression and bilateral pedicle screw fusion is noted. Hardware i s intact. No unexpected radiopaque foreign bodies. IMPRESSION: L4-L5 hardware removal with interval L3-L4 discectomy, posterior decompression and bilate ral pedicle screw fusion. ACT 112: Negative or not required by law. Electronically signed by: Mika Corado M.D. 02/11/2022 9:45 AM
[2022-02-11] MEDS: fentaNYL citrate 100 MCG/2 ML VIAL IV PRN ×3 (10:00→10:14)
[2022-02-11] MEDS ORDERED: METOCLOPRAMIDE HCL INJ 5 MG/ML 2 ML VIAL IV PRN (11:09)
[2022-02-11] MEDS ORDERED: BENZONATATE 100 MG CAPSULE PO PRN (11:09)
[2022-02-11] MEDS ORDERED: LORazepam 0.5 MG TAB PO PRN (11:09)
[2022-02-11] MEDS ORDERED: FAMOTIDINE 20 MG TAB PO PRN ×2 (11:09)
[2022-02-11] MEDS ORDERED: LORazepam 2 MG/1 ML VIAL IV PRN (11:09)
[2022-02-11] MEDS ORDERED: MAGNESIUM HYDROXIDE SUSP 30 ML UDC PO PRN (11:09)
[2022-02-11] MEDS ORDERED: ONDANSETRON 4 MG OD TAB PO PRN (11:09)
[2022-02-11] MEDS ORDERED: ALUMINUM/MAGNESIUM SUSP 30 ML UDC PO PRN (11:09)
[2022-02-11] MEDS ORDERED: diphenhydrAMINE Capsule 25 MG CAP PO PRN (11:09)
[2022-02-11] MEDS ORDERED: NALOXONE HCL 0.4 MG/1 ML VIAL/CARP IV PRN (11:09)
[2022-02-11] MEDS ORDERED: DO NOT ADMINISTER FLU VACCINE PRN (11:09)
[2022-02-11] MEDS ORDERED: SOD PHOSPHATE/SOD BIPHOSPHATE ENEMA 132 ML BTL PR PRN (11:09)
[2022-02-11] MEDS ORDERED: HYDROmorphone INJ 0.5 MG/0.5 ML SYR IV PRN (11:09)
[2022-02-11] MEDS ORDERED: ACETAMINOPHEN 1,000 MG/100 ML VIAL IV PRN (11:09)
[2022-02-11] MEDS ORDERED: PROMETHAZINE HCL 12.5 MG in SODIUM CHLORIDE 0.9% 50 ML IV PRN (11:09)
[2022-02-11] MEDS ORDERED: HYDROmorphone INJ 1 MG/ML SYRINGE IV PRN (11:09)
[2022-02-11] MEDS ORDERED: hydrOXYzine HCl 25 MG TAB PO PRN (11:09)
[2022-02-11] MEDS ORDERED: oxyCODONE HCL IR 5 MG TAB (IMMEDIATE RELEASE) PO PRN (11:09)
[2022-02-11] MEDS ORDERED: ACETAMINOPHEN 500 MG TAB PO PRN (11:09)
[2022-02-11] MEDS ORDERED: bisacodyL 10 MG SUPP PR PRN (11:09)
[2022-02-11] MEDS ORDERED: DO NOT ADMINISTER PNEUMOCOCCAL VACCINE PRN (11:09)
[2022-02-11] MEDS: CHECK SCOPOLAMINE PATCH PLACEMENT SCH ×3 (11:13→16:02)
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
--- NOTE | 2022-02-11 11:55 | Anesthesiology Progress Note ---
Date of Service February 11, 2022 Anesthesia Post Procedure Vital Signs Vital Signs: Temp Pulse Pulse Resp BP Pulse Ox 02/11/22 11:35 77 16 139/88 98 02/11/22 10:59 36.5 C 82 16 148/95 H 95 02/11/22 10:50 80 8 L 140/95 98 02/11/22 10:40 83 14 136/90 95 02/11/22 10:30 36.5 C 94 H 8 L 146/89 H 98 02/11/22 10:20 85 21 149/89 H 100 02/11/22 10:10 88 10 L 144/95 H 99 02/11/22 10:00 87 15 126/90 93 02/11/22 09:50 94 H 13 137/65 98 02/11/22 09:41 36.3 C L 94 H 11 L 128/89 100 02/11/22 06:29 36.8 C 95 H 18 189/111 H 94 Pain Intensity Lower Back: Pain Intensity: 5 Transfer of Care Handoff Completed per policy Notes Mental Status: alert / awake / arousable Patient Amnestic to Procedure: Yes Nausea / Vomiting: adequately controlled Pain: adequately controlled Airway Patency, RR, SpO2: stable & adequate BP & HR: stable & adequate Hydration State: stable & adequate Anesthetic Complications: no major complications apparent
[2022-02-11] MEDS: LACTATED RINGER'S 1,000 ML IV SCH ×2 (12:06→16:02)
[2022-02-11] MEDS: SIMETHICONE 80 MG CHEW PO SCH ×2 (14:44→18:29)
[2022-02-11] MEDS: ceFAZolin 2000MG 2,000 MG/15 ML SYR IV SCH (18:30)
[2022-02-11] MEDS ORDERED: NON-FORMULARY MEDICATION (Zinc 15 mg Tablet) PO SCH (21:00)
[2022-02-11] MEDS ORDERED: CICLOPIROX 8% TOP SCH (21:00)
[2022-02-11] MEDS: lisinopril 10 MG TAB PO SCH (21:31)
[2022-02-11] MEDS: DOCUSATE SODIUM/SENNA 50/8.6MG TAB PO SCH (21:31)
[2022-02-11] MEDS: traZODone HCL 50 MG TAB PO SCH (21:32)
[2022-02-11] MEDS: traMADol HCL 50 MG TABLET PO PRN (21:41)
[2022-02-12] MEDS: CHECK SCOPOLAMINE PATCH PLACEMENT SCH ×3 (00:01→17:43)
[2022-02-12] MEDS: ceFAZolin 2000MG 2,000 MG/15 ML SYR IV SCH (01:35)
[2022-02-12] MEDS: LACTATED RINGER'S 1,000 ML IV SCH ×2 (01:40→08:13)
[2022-02-12] MEDS: POLYETHYLENE (MIRALAX) 17 GM PACK PO SCH ×4 (05:48→23:39)
[2022-02-12 07:01] LABS: Basophils # (auto) 0.02 K/uL (0-0.2); Basophils % (auto) 0.2 %; Eosinophils # (auto) 0.01 K/uL (0-0.5); Eosinophils % (auto) 0.1 %; Hematocrit (blood only) 34.4 % (37-47); Hemoglobin 11.3 g/dL (12.0-16.0); Immature Granulocytes # (auto) 0.02 K/uL (0.00-0.02); Immature Granulocytes % (auto) 0.2 %; Lymphocytes % (auto) 14.3 %; Mean Corpuscular Hemoglobin 29.4 pg (25-34); Mean Corpuscular Hgb Conc 32.8 g/dL (32-36); Mean Corpuscular Volume 89.6 fL (80-100); Mean Platelet Volume 10.8 fL (7.4-10.4); Neutrophils # (auto) 8.51 K/uL (1.4-6.5); Neutrophils % (auto) 76.2 %; Platelet Count 245 K/uL (130-400); RDW Coefficient of Variation 12.9 % (11.5-14.5); RDW Standard Deviation 42.1 fL (36.4-46.3); Red Blood Count 3.84 M/uL (4.2-5.4); White Blood Count 11.16 K/uL (4.8-10.8)
[2022-02-12 07:15] LABS: BUN Creatinine Ratio 16.7 (10-20); Calcium 8.8 mg/dl (8.5-10.1); Creatinine Clr Calc Pharmacy 72.8 ml/min; Est GFR (African American) 84.5 ml/min; Est GFR (Non-African American) 72.9 ml/min; Potassium 4.1 mmol/L (3.5-5.1)
--- NOTE | 2022-02-12 08:16 | Orthopedic Progress Note ---
Date of Service February 12, 2022 Assessment & Plan (1) Neurogenic claudication due to lumbar spinal stenosis: Plan: At this time continue physical therapy monitor her ABIOLA output hopefully discharge home in the next few days. We will discontinue her Lauren this morning. Admission and Anticipated Discharge Date Admission Date: February 11, 2022 Subjective Patient's back pain is controlled leg symptoms markedly improved Physical Exam Physical Exam: Patient is in bed. Appears comfortable. Is excellent strength testing. Results & Data ([facility]) Vital Signs (Past 12 Hours) Vital Signs Temp Pulse Resp BP Pulse Ox 02/12/22 03:42 36.5 C 77 16 121/75 96 02/11/22 23:43 36.7 C 87 16 125/77 96
[2022-02-12] MEDS: ASCORBIC ACID 500 MG TAB PO SCH (08:49)
[2022-02-12] MEDS: SIMETHICONE 80 MG CHEW PO SCH ×3 (08:49→17:42)
[2022-02-12] MEDS: MULTIVITAMIN TAB PO SCH (08:50)
[2022-02-12] MEDS: CHOLECALCIFEROL 5,000 UNITS 125 MCG TAB PO SCH (08:50)
[2022-02-12] MEDS: dexAMETHasone 6 MG in SYRINGE 0 ML IV SCH (08:51)
[2022-02-12] MEDS: FLUTICASONE PROPIONATE NA SPR 16 GM BTL NAE SCH (08:51)
--- NOTE | 2022-02-12 09:42 | Hospitalist Progress Note ---
Date of Service February 12, 2022 Assessment & Plan (1) Neurogenic claudication due to lumbar spinal stenosis: Plan: This is a 66-year-old female who has a significant past medical history of HTN, chronic low back pain, failed back syndrome, history of right TKA who presents for elective lumbar procedure by Dr. Evans. Operation Date: 02/11/22 07:45 Actual Procedures #1 removal of posterior instrumentation L4-5. #2 exploration of fusion L4-5. #3 lumbar decompression with bilateral medial facetectomies and foraminotomies L2-L3 L3-L4 per #4 posterior spinal fusion L3-L4. #5 placement posterior instrumentation L3-4. #6 interbody fusion L3-L4. #7 placement of Spira 12 x 22 mm cage at L3-L4. #8 placement locally harvested morselized autograft in the posterior gutters. #9 placement of I factor combined with V toss in the posterior lateral gutters and interbody space. POD # [address] Evans EBL: 100ml; RICHARD Drain 300ml tolerated procedure well Pain/wound management per orthopedics Activity and therapy as prescribed by orthopedics Encourage incentive spirometry Monitor hemoglobin, preop 12.9, today 11.3 Acute blood loss anemia, expected post surgical hgb 11.3 continue to monitor richard output (2) Hypertension: Plan: Blood pressure 143/85 Continue lisinopril with parameters DVT prophylaxis: SCD/teds Dispo: Per primary Full code PCP: Dr. Jonatan MD, [facility] PCP in [place] Patient was seen and examined in collaboration with Dr. Salas, please see addendum Thank you for this consultation. We will follow the patient with you during their hospital stay. You can reach a member of the [facility] Hospitalist Team 12/05 via hospitalist role on tiger text. Admission and Anticipated Discharge Date Admission Date: February 11, 2022 Supervising Physician Co-Signing Physician Notes I have seen and examined the patient and have discussed the case with the provider above. I agree with the examination and assessment and plan as stated. 66 yo F s/p back surgery by Dr. Evans. POD #1. Doing well just post-op now. Eating Ok and MOving gas. Denies chest pain or SOB, and no other concerning issues at this time. Physical exam reveals Sitting up, RA, NAD, low back dressing w/o soakage and RICHARD drain with mod serosanguinous collection. Heart and lung exam are unremarkable. Sensation intact in her feet and extremities are warm and well-perfused. Agree with plan outlined above. We will continue to follow her throughout this hospital stay. Thank you for this consultation. Subjective Patient was seen and examined in room 307-1. Follow up lumbar surgery. Overall feels well this morning. Is anxious to get catheter out. Denies f/c/s, chest pain, sob, n/v/d. She is passing flatus. Appetite is good. Denies significant back pain. She does complain of mild vertigo with quick head movements that resolves with in sequences. Denies lightheaded or presyncope. Review of Systems Review of Systems: All systems reviewed & are unremarkable except as noted in HPI & below Physical Exam Physical Exam: Gen: WD/WN, F, NAD, A&O x3 HEENT: Normocephalic, atraumatic, conjunctivae moist, sclerae anicteric, mucous membranes moist. Lung: Clear to Auscultation bilaterally, no wheezes/rales/rhonchi Heart: Regular rate, regular rhythm, no murmurs, rubs, or gallops Abdomen: Soft, NT, ND +BS x 4 Extremities: No edema, lumbar dressing CDI, RICHARD drain with serosang drainage Skin: Warm, no rash, negative turgor. : curran cath draining yellow urine Results & Data Results & Data ([facility]) Vital Signs (Past 12 Hours) Vital Signs Temp Pulse Resp BP Pulse Ox 02/12/22 08:16 67 16 143/85 H 98 02/12/22 03:42 36.5 C 77 16 121/75 96 02/11/22 23:43 36.7 C 87 16 125/77 96 Laboratory Results Short CBC 02/12/22 Range/Units 05:40 WBC 11.16 H (4.8-10.8) K/uL Hgb 11.3 L (12.0-16.0) g/dL Hct 34.4 L (37-47) % Plt Count 245 (130-400) K/uL BMP 02/12/22 05:40 Sodium 140 Potassium 4.1 Chloride 105 Carbon Dioxide 29 BUN 14 Creatinine 0.84 Glucose 107 H Calcium 8.8 Medications Administered Medication List Ascorbic Acid (Ascorbic Acid 500 Mg Tab) 1,000 mg PO QAM HODAN Stop: 03/14/22 08:59 Last Admin: 02/12/22 08:49 Dose: 1,000 mg Documented by: [id number] Fluticasone Propionate (Fluticasone Propionate Na Spr 16 Gm Btl) 2 sprays DOMINIC QAM HODAN Stop: 03/14/22 08:59 Last Admin: 02/12/22 08:51 Dose: 2 sprays Documented by: [id number] Acetaminophen (Ofirmev) 1,000 mg in 100 mls @ 400 mls/hr IV Q8H PRN PRN Reason: Pain Rating 1-3 & Pre PT Stop: 02/14/22 11:08 Last Infusion: 02/11/22 15:59 Dose: 0 mls/hr Documented by: [id number] Admin: 02/11/22 15:08 Dose: 400 mls/hr Documented by: [id number] Dexamethasone 6 mg/ Syringe 1.5 mls @ 1 mls/min IV DAILY HODAN Stop: 02/14/22 09:02 Last Admin: 02/12/22 08:51 Dose: 1 mls/min Documented by: [id number] Lisinopril (Lisinopril 10 Mg Tab) 30 mg PO QPM HODAN Stop: 03/13/22 20:59 Last Admin: 02/11/22 21:31 Dose: 30 mg Documented by: [id number] Miscellaneous (Check Scopolamine Patch Placement) 1 ea N/A QS [facility] Stop: 03/13/22 00:00 Last Admin: 02/12/22 08:50 Dose: 1 ea Documented by: [id number] Admin: 02/12/22 00:01 Dose: 1 ea Documented by: [id number] Admin: 02/11/22 16:02 Dose: 1 ea Documented by: [id number] Admin: 02/11/22 11:15 Dose: Not Given Documented by: [id number] Admin: 02/11/22 11:13 Dose: Not Given Documented by: [id number] Multivitamins (Multivitamin Tab) 1 tab PO QAM HODAN Stop: 03/14/22 08:59 Last Admin: 02/12/22 08:50 Dose: 1 tab Documented by: [id number] Polyethylene Glycol (Polyethylene (Miralax) 17 Gm Pack) 17 gm PO Q6 HODAN Stop: 03/14/22 05:59 Last Admin: 02/12/22 05:48 Dose: 17 gm Documented by: [id number] Scopolamine (Scopolamine 1 Mg Tdsy) 1 mg TD Q72H HODAN Stop: 03/13/22 05:59 Last Admin: 02/11/22 06:54 Dose: 1 mg Documented by: [id number] Senna/Docusate Sodium (Docusate Sodium/Senna 50/8.6mg Tab) 2 tab PO HS HODAN Stop: 03/13/22 20:59 Last Admin: 02/11/22 21:31 Dose: 2 tab Documented by: [id number] Simethicone (Simethicone 80 Mg Chew) 80 mg PO TIDM HODAN Stop: 03/13/22 11:59 Last Admin: 02/12/22 08:49 Dose: 80 mg Documented by: [id number] Admin: 02/11/22 18:29 Dose: 80 mg Documented by: [id number] Admin: 02/11/22 14:44 Dose: 80 mg Documented by: [id number] Tramadol HCl (Tramadol Hcl 50 Mg Tablet) 50 - 100 mg PO Q4H PRN PRN Reason: Moderate-Severe pain & Pre PT Stop: 03/13/22 11:08 Last Admin: 02/11/22 21:41 Dose: 50 mg Documented by: [id number] Trazodone HCl (Trazodone Hcl 50 Mg Tab) 12.5 mg PO HS HODAN Stop: 03/13/22 20:59 Last Admin: 02/11/22 21:32 Dose: 12.5 mg Documented by: [id number] Vitamin D (Cholecalciferol 5,000 Units 125 Mcg Tab) 10,000 units PO QAM HODAN Stop: 03/14/22 08:59 Last Admin: 02/12/22 08:50 Dose: 10,000 units Documented by: [id number] Discontinued Medications Acetaminophen (Acetaminophen 500 Mg Tab) 1,000 mg PO PREOP HODAN Stop: 02/11/22 18:00 Last Admin: 02/11/22 06:55 Dose: 1,000 mg Documented by: [id number] Bupivacaine HCl/Epinephrine Bitart (Bupivacaine/Epinephrine 0.25% 1:200,000 30 Ml Vial) Confirm Administered Dose 30 ml .ROUTE .STK-MED ONE Stop: 02/11/22 07:10 Last Admin: 02/11/22 11:13 Dose: Not Given Documented by: [id number] Cefazolin Sodium (Cefazolin 330 Mg/Ml 1 Gm Vial) Confirm Administered Dose 990 mg .ROUTE .STK-MED ONE Stop: 02/11/22 07:10 Last Admin: 02/11/22 08:31 Dose: 1,000 mg Documented by: [id number] Celecoxib (Celebrex 200 Mg Cap) 200 mg PO PREOP HODAN Stop: 02/11/22 18:00 Last Admin: 02/11/22 06:55 Dose: 200 mg Documented by: [id number] Fentanyl Citrate (Fentanyl Citrate 100 Mcg/2 Ml Vial) 50 mcg IV Q5M PRN PRN Reason: PACU Use Only-Pain Stop: 02/11/22 15:20 Last Admin: 02/11/22 10:14 Dose: 50 mcg Documented by: [id number] Admin: 02/11/22 10:07 Dose: 50 mcg Documented by: [id number] Admin: 02/11/22 10:00 Dose: 50 mcg Documented by: [id number] Gabapentin (Gabapentin 300 Mg Cap) 300 mg PO PREOP HODAN Stop: 02/11/22 18:00 Last Admin: 02/11/22 06:55 Dose: 300 mg Documented by: [id number] Clindamycin Phosphate (Cleocin) 600 mg in 54 mls @ 100 mls/hr IV PREOP HODAN Stop: 02/12/22 05:59 Last Infusion: 02/11/22 11:16 Dose: 0 mls/hr Documented by: [id number] Admin: 02/11/22 07:43 Dose: 100 mls/hr Documented by: [id number] Lactated Ringer's (Lr) 1,000 mls @ 15 mls/hr IV .Q24H HODAN Stop: 02/12/22 05:59 Last Infusion: 02/11/22 07:44 Dose: 0 mls/hr Documented by: [id number] Admin: 02/11/22 06:28 Dose: 15 mls/hr Documented by: [id number] Cefazolin Sodium (Ancef 2000mg) 2,000 mg in 15 mls @ 3.75 mls/min IV Q8H HODAN; Protocol Stop: 02/12/22 00:33 Last Admin: 02/12/22 01:35 Dose: 3.75 mls/min Documented by: [id number] Admin: 02/11/22 18:30 Dose: 3.75 mls/min Documented by: [id number] Lactated Ringer's (Lr) 1,000 mls @ 100 mls/hr IV .Q10H HODAN Stop: 03/13/22 11:08 Last Admin: 02/12/22 08:13 Dose: Not Given Documented by: [id number] Infusion: 02/12/22 05:48 Dose: 0 mls/hr Documented by: [id number] Admin: 02/12/22 01:40 Dose: 100 mls/hr Documented by: [id number] Infusion: 02/12/22 01:40 Dose: 100 mls/hr Documented by: [id number] Admin: 02/11/22 16:02 Dose: 100 mls/hr Documented by: [id number] Admin: 02/11/22 12:06 Dose: Not Given Documented by: [id number] Miscellaneous ( Floseal Hemostatic Matrix 10ml) 20 ml TOP ONCE ONE Stop: 02/11/22 09:11 Last Admin: 02/11/22 11:13 Dose: Not Given Documented by: [id number]
[2022-02-12] MEDS ORDERED: Nursing to Pharmacy Communication SCH (10:00)
[2022-02-12] MEDS ORDERED: COUGH DROP (SUGAR FREE) LOZ 24 LOZ/1 BOX BUCCAL PRN ×2 (10:13→10:30)
[2022-02-12] MEDS: traMADol HCL 50 MG TABLET PO PRN ×2 (12:12→23:40)
[2022-02-12] MEDS: DOCUSATE SODIUM/SENNA 50/8.6MG TAB PO SCH (23:41)
[2022-02-12] MEDS: lisinopril 10 MG TAB PO SCH (23:42)
[2022-02-12] MEDS: traZODone HCL 50 MG TAB PO SCH (23:42)
[2022-02-13] MEDS: CHECK SCOPOLAMINE PATCH PLACEMENT SCH ×3 (00:40→17:03)
[2022-02-13] MEDS: POLYETHYLENE (MIRALAX) 17 GM PACK PO SCH (05:58)
[2022-02-13 08:26] LABS: Hematocrit (blood only) 35.1 % (37-47); Hemoglobin 11.6 g/dL (12.0-16.0); Mean Corpuscular Hemoglobin 29.4 pg (25-34); Mean Corpuscular Volume 89.1 fL (80-100); Mean Platelet Volume 10.4 fL (7.4-10.4); Platelet Count 236 K/uL (130-400); RDW Coefficient of Variation 13.2 % (11.5-14.5); Red Blood Count 3.94 M/uL (4.2-5.4); White Blood Count 9.69 K/uL (4.8-10.8)
[2022-02-13] MEDS: SIMETHICONE 80 MG CHEW PO SCH ×2 (09:45→13:20)
[2022-02-13] MEDS: ASCORBIC ACID 500 MG TAB PO SCH (09:45)
[2022-02-13] MEDS: FLUTICASONE PROPIONATE NA SPR 16 GM BTL NAE SCH (09:46)
[2022-02-13] MEDS: MULTIVITAMIN TAB PO SCH (09:46)
[2022-02-13] MEDS: CHOLECALCIFEROL 5,000 UNITS 125 MCG TAB PO SCH (09:46)
[2022-02-13] MEDS: dexAMETHasone 6 MG in SYRINGE 0 ML IV SCH (09:47)
--- NOTE | 2022-02-13 10:50 | Hospitalist Progress Note ---
Date of Service February 13, 2022 Assessment & Plan (1) Neurogenic claudication due to lumbar spinal stenosis: Plan: This is a 66-year-old female who has a significant past medical history of HTN, chronic low back pain, failed back syndrome, history of right TKA who presents for elective lumbar procedure by Dr. Evans. Operation Date: 02/11/22 07:45 Actual Procedures #1 removal of posterior instrumentation L4-5. #2 exploration of fusion L4-5. #3 lumbar decompression with bilateral medial facetectomies and foraminotomies L2-L3 L3-L4 per #4 posterior spinal fusion L3-L4. #5 placement posterior instrumentation L3-4. #6 interbody fusion L3-L4. #7 placement of Spira 12 x 22 mm cage at L3-L4. #8 placement locally harvested morselized autograft in the posterior gutters. #9 placement of I factor combined with V toss in the posterior lateral gutters and interbody space. POD # [address] Evans EBL: 100ml tolerated procedure well Pain/wound management per orthopedics Activity and therapy as prescribed by orthopedics Encourage incentive spirometry Monitor hemoglobin, preop 12.9, today 11.6 Acute blood loss anemia, expected post surgical hgb 11.3 --> 11.6 continue to monitor richard output (2) Hypertension: Plan: Blood pressure 125/85 Continue lisinopril with parameters DVT prophylaxis: SCD/teds Dispo: Per primary Full code PCP: Dr. Jonatan MD, [facility] PCP in [place] Patient was seen and examined in collaboration with Dr. Amor, please see addendum Thank you for this consultation. We will follow the patient with you during their hospital stay. You can reach a member of the [facility] Hospitalist Team 12/05 via hospitalist role on tiger text. Admission and Anticipated Discharge Date Admission Date: February 11, 2022 Supervising Physician Co-Signing Physician Notes Patient seen and examined by me, care coordinated with Pao Arias PA-C, please refer to her note above for further detail. Patient is currently ambulating with a walker in her room. States that standing feels good. She is awake alert oriented answering questions appropriately. She is hoping to be discharged today. Lungs are clear to auscultation bilaterally without any wheezing rhonchi or crackles. Heart sounds regular. Abdomen soft nontender nondistended. Skin warm dry. Patient still has RICHARD drain. Agree with the plan above. Possible discharge by orthopedics later today. Racquel Amor MD Subjective Patient was seen and examined in room 307-1. Follow up lumbar surgery. She is sitting up and bedside and hoping to go home today. States she only has back pain when going to sit down, stand up or lay down in bed. Has been ambulating otherwise without difficulty. She denies f/c/s, chest pain, sob, n/v/d. She has moved her bowels. Appetite is good. Feels dizziness/vertigo sx much improved today. Denies "things are spinning." Denies tinnitus or change in hearing. She does feel her neck is stiff. Review of Systems Review of Systems: All systems reviewed & are unremarkable except as noted in HPI & below Physical Exam Physical Exam: Gen: WD/WN, F, NAD, A&O x3 HEENT: Normocephalic, atraumatic, conjunctivae moist, sclerae anicteric, mucous membranes moist. Lung: Clear to Auscultation bilaterally, no wheezes/rales/rhonchi Heart: Regular rate, regular rhythm, no murmurs, rubs, or gallops Abdomen: Soft, NT, ND +BS x 4 Extremities: No edema, lumbar dressing CDI, RICHARD drain with serosang drainage Skin: Warm, no rash, negative turgor. Results & Data Results & Data ([facility]) Vital Signs (Past 12 Hours) Vital Signs Temp Pulse Resp BP Pulse Ox 02/13/22 08:08 36.7 C 77 19 125/85 96 Laboratory Results Short CBC 02/13/22 Range/Units 05:57 WBC 9.69 (4.8-10.8) K/uL Hgb 11.6 L (12.0-16.0) g/dL Hct 35.1 L (37-47) % Plt Count 236 (130-400) K/uL Medications Administered Current Inpatient Medications Acetaminophen (Acetaminophen 500 Mg Tab) 1,000 mg PO Q8H PRN PRN Reason: MILD Pain Scale 1,2,3 & Pre PT Stop: 03/13/22 11:08 Al Hydrox/Mg Hydrox/Simethicone (Aluminum/Magnesium Susp 30 Ml Udc) 30 ml PO Q6H PRN PRN Reason: Dyspepsia Stop: 03/13/22 11:08 Ascorbic Acid (Ascorbic Acid 500 Mg Tab) 1,000 mg PO [facility] Stop: 03/14/22 08:59 Last Admin: 02/13/22 09:45 Dose: 1,000 mg Documented by: Benzonatate (Benzonatate 100 Mg Capsule) 200 mg PO TID PRN PRN Reason: Cough Stop: 03/13/22 11:08 Bisacodyl (Bisacodyl 10 Mg Supp) 10 mg [place] DAILY PRN PRN Reason: Constipation Stop: 03/13/22 11:08 Diphenhydramine HCl (Diphenhydramine Capsule 25 Mg Cap) 25 mg PO Q6H PRN PRN Reason: Allergic Rhinitis/Insomnia Stop: 03/13/22 11:08 Famotidine (Famotidine 20 Mg Tab) 20 mg PO Q12H PRN PRN Reason: Dyspepsia Stop: 03/13/22 11:08 Fluticasone Propionate (Fluticasone Propionate Na Spr 16 Gm Btl) 2 sprays DOMINIC [facility] Stop: 03/14/22 08:59 Last Admin: 02/13/22 09:46 Dose: 2 sprays Documented by: Hydromorphone HCl (Hydromorphone Inj 0.5 Mg/0.5 Ml Syr) 0.5 mg IV Q3H PRN PRN Reason: MODERATE Pain (Scale 4,5,6) & Stop: 02/25/22 11:08 Hydromorphone HCl (Hydromorphone Inj 1 Mg/Ml Syringe) 1 mg IV Q3H PRN PRN Reason: SEVERE Pain (Scale 7,8,9,10) Stop: 02/25/22 11:08 Hydroxyzine HCl (Hydroxyzine Hcl 25 Mg Tab) 25 mg PO Q8H PRN PRN Reason: Anxiety Stop: 03/13/22 11:08 Promethazine HCl 12.5 mg/ (Sodium Chloride) 50.5 mls @ 202 mls/hr IV Q6H PRN PRN Reason: Nausea &/or Vomiting Stop: 03/13/22 11:08 Acetaminophen (Ofirmev) 1,000 mg in 100 mls @ 400 mls/hr IV Q8H PRN PRN Reason: Pain Rating 1-3 & Pre PT Stop: 02/14/22 11:08 Last Infusion: 02/11/22 15:59 Dose: Infused Documented by: Dexamethasone 6 mg/ Syringe 1.5 mls @ 1 mls/min IV DAILY [facility] Stop: 02/14/22 09:02 Last Admin: 02/13/22 09:47 Dose: 1 mls/min Documented by: Influenza Virus Vaccine Quadrival (Do Not Administer Flu Vaccine) 1 ea N/A PRN PRN PRN Reason: Notification Stop: 03/13/22 11:08 Lisinopril (Lisinopril 10 Mg Tab) 30 mg PO QPM HODAN Stop: 03/13/22 20:59 Last Admin: 02/12/22 23:42 Dose: 30 mg Documented by: Lorazepam (Lorazepam 0.5 Mg Tab) 0.5 mg PO Q8H PRN PRN Reason: Sedation/Anxiety Stop: 03/13/22 11:08 Lorazepam (Lorazepam 2 Mg/1 Ml Vial) 0.5 mg IV Q8H PRN PRN Reason: Sedation/Anxiety Stop: 03/13/22 11:08 Magnesium Hydroxide (Magnesium Hydroxide Susp 30 Ml Udc) 30 ml PO Q24H PRN PRN Reason: Constipation Stop: 03/13/22 11:08 Menthol (Cough Drop (Sugar Free) Ara 24 Ara/1 Box) 1 ara BUCCAL PRN PRN PRN Reason: Cough Stop: 03/14/22 10:12 Last Admin: 02/12/22 10:22 Dose: 1 ara Documented by: Metoclopramide HCl (Metoclopramide Hcl Inj 5 Mg/Ml 2 Ml Vial) 10 mg IV Q6H PRN PRN Reason: Nausea &/or Vomiting Stop: 03/13/22 11:08 Miscellaneous (Remove Transderm-Scop Patch) 1 ea N/A Q72H HODAN Stop: 03/16/22 05:58 Miscellaneous (Check Scopolamine Patch Placement) 1 ea N/A QS [facility] Stop: 03/13/22 00:00 Last Admin: 02/13/22 09:45 Dose: 1 ea Documented by: Multivitamins (Multivitamin Tab) 1 tab PO QAM HODAN Stop: 03/14/22 08:59 Last Admin: 02/13/22 09:46 Dose: 1 tab Documented by: Naloxone HCl (Naloxone Hcl 0.4 Mg/1 Ml Vial/Carp) 0.1 mg IV Q5M PRN PRN Reason: Oversedation/Resp depression Stop: 03/13/22 11:08 Ondansetron HCl (Ondansetron Inj 2 Mg/Ml 2 Ml Vial) 4 mg IV Q6H PRN PRN Reason: Nausea &/or Vomiting Stop: 03/13/22 11:08 Ondansetron HCl (Ondansetron 4 Mg Od Tab) 4 mg PO Q6H PRN PRN Reason: Nausea Stop: 03/13/22 11:08 Oxycodone HCl (Oxycodone Hcl Ir 5 Mg Tab (Immediate Release)) 5 - 10 mg PO Q4H PRN PRN Reason: Pain & Pre PT Stop: 02/25/22 11:08 Pneumococcal Polyvalent Vaccine (Do Not Administer Pneumococcal Vaccine) 1 ea N/A PRN PRN PRN Reason: Notification Stop: 03/13/22 11:08 Scopolamine (Scopolamine 1 Mg Tdsy) 1 mg TD Q72H HODAN Stop: 03/13/22 05:59 Last Admin: 02/11/22 06:54 Dose: 1 mg Documented by: Senna/Docusate Sodium (Docusate Sodium/Senna 50/8.6mg Tab) 2 tab PO HS [facility] Stop: 03/13/22 20:59 Last Admin: 02/12/22 23:41 Dose: 2 tab Documented by: Simethicone (Simethicone 80 Mg Chew) 80 mg PO TIDM HODAN Stop: 03/13/22 11:59 Last Admin: 02/13/22 09:45 Dose: 80 mg Documented by: Sodium Biphosphate/Sodium Phosphate (Sod Phosphate/Sod Biphosphate Enema 132 Ml Btl) 132 ml [place] ONE PRN PRN Reason: Constipation Stop: 03/13/22 11:08 Tramadol HCl (Tramadol Hcl 50 Mg Tablet) 50 - 100 mg PO Q4H PRN PRN Reason: Moderate-Severe pain & Pre PT Stop: 03/13/22 11:08 Last Admin: 02/12/22 23:40 Dose: 50 mg Documented by: Trazodone HCl (Trazodone Hcl 50 Mg Tab) 12.5 mg PO HS HODAN Stop: 03/13/22 20:59 Last Admin: 02/12/22 23:42 Dose: 12.5 mg Documented by: Vitamin D (Cholecalciferol 5,000 Units 125 Mcg Tab) 10,000 units PO [facility] Stop: 03/14/22 08:59 Last Admin: 02/13/22 09:46 Dose: 10,000 units Documented by:
--- NOTE | 2022-02-13 10:59 | Discharge Summary ---
Date of Service February 13, 2022 Admission HPI Per Admitting Provider This is a 66-year-old female well-known to me the presents with current persistent back and leg pain. Failing course of nonoperative care she is here for surgical invention. Principal Diagnosis Lumbar spinal stenosis with neurogenic claudication Discharge Data Allergies Allergy/AdvReac Type Severity Reaction Status Date / Time nitrofurantoin Allergy Severe Anaphylaxis Verified 01/24/22 15:02 [From Macrodantin] nut - unspecified Allergy Severe Pruritis Verified 01/24/22 15:02 and bubbling to posterior pharynx adhesive tape Allergy Intermediate Redness of Verified 02/11/22 06:22 Skin erythromycin base Allergy Intermediate Vomiting Verified 02/11/22 06:22 latex Allergy Intermediate Rash Verified 02/11/22 06:22 nickel Allergy Intermediate blisters Verified 02/11/22 06:22 Penicillins Allergy Intermediate A Verified 02/11/22 06:22 CHILD-VOMITING shellfish derived Allergy Intermediate Unknown-VOMITING? Verified 02/11/22 06:22 A CHILD zoster vaccine live Allergy Intermediate swelling Verified 02/11/22 06:22 [From Zostavax (PF)] Sulfa (Sulfonamide Allergy Mild Rash Verified 02/11/22 06:22 Antibiotics) sulfamethoxazole Allergy Mild Rash Verified 02/11/22 06:22 [From Bactrim] trimethoprim [From Bactrim] Allergy Mild Rash Verified 02/11/22 06:22 clindamycin AdvReac Severe Diarrhea Verified 01/24/22 15:02 iron AdvReac Mild Nausea Verified 02/11/22 06:22 Consultations 02/11/22 11:09 Consult Hospitalist Routine Procedures Performed Operation Date: 02/11/22 07:45 Actual Procedures s L4-L5 Hardware Removal,(Not Applicable) - Hamilton Evans DO p L3-L4 Decompression Fusion, Spinal Cord Monitoring(Not Applicable) - Hamilton Evans DO Ordered Studies 02/11/22 07:45 [place] lumbar spine 2-3V Routine Hospital Course (1) Neurogenic claudication due to lumbar spinal stenosis: Patient underwent lumbar decompression fusion [place] posting orthopedic floor postoperative for postop day 1 she was up and ambulating progressed postop day #2. ABIOLA drain decreasing appropriate. Pain well controlled. Separately discharged home. Discharge orders instructions on the chart for further view. Total Time Total Time Spent Total Time Spent (In Minutes): 20 minutes Discharge Plan Discharge Items Patient Disposition: Home - Self-Care Reason For Visit: Spinal Stenosis of Lumbar Region with Radiculopath Discharge Diagnosis: Lumbar spinal stenosis with neurogenic claudication Activity: As commented below Non-emergency contact: Primary Care Provider Call non-emergency contact if: you have any medication questions Follow-up/Referrals: Hamilton Evasn DO [Surgeon] - 02/26/22 12:00 pm Moses Cheung MD [Primary Care Provider] - Diet: Regular Addtl Attending Provider Instructions: ACTIVITY RECOMMENDATIONS: SELF CARE INSTRUCTIONS AFTER THORACIC/LUMBAR FUSIONS 1. You may walk to your tolerance. It is good exercise for your legs and back. Expect some back and intermittent leg aches and pains. 2. You may perform "counter-top" level activities (make a sandwich, lobo with a project, etc.). 3. No bending or lifting of more than 10 pounds or back twisting of any nature (roll like a log when turning in bed). 4. You may ride in a car for 20-30 minutes at a time. No driving until after your first visit with your doctor. 5. Frequent changes of position and restricting sitting to 30 minutes at a time will help limit the amount of back spasms and stiffness you may experience. 6. You may discontinue the use of ambulatory aids (cane, crutches, etc.) once your strength and confidence allow. 7. You may informatics manager the shower and let water strike your incision when you arrive home at least once daily. Do not take a tub bath, sit in a hot tub or go into a swimming pool until after your first recheck in the office. SPECIAL CARE INSTRUCTIONS: VERY IMPORTANT TO READ AND REVIEW A. Your surgical incision has been closed with a cosmetic suture under the skin that will dissolve in about 6 weeks. In 14 days, you can use a pair of clean scissors and cut the suture that is left outside of the skin at the ends of your incision. 1. The small skin tapes can be removed 7 days after surgery if they have not fallen off by that point. 2. You may keep the wound open to air as much as possible to promote healing after post-op day number 5 unless told otherwise by your doctor. 3. If you think the wound looks like it is becoming infected (redness or worsening drainage) and/or you are experiencing fever, chill or worsening back pain and muscle spasms, contact the office so that we may evaluate you as soon as possible. B. Complications are uncommon, but please contact us if you have any signs or symptoms of: 1. wound infection (fever higher than 102.5 degrees F, redness, separation of wound, drainage, or increasing pain from the incision) 2. blood clots in legs (pain, swelling, redness and warmth in legs) 3. urinary tract infection (fever higher than 102.5 degrees F, burning upon urination or increased frequency of urination) 4. nerve problems (inability to walk on your toes or heels, numbness, loss of bowel or bladder control) 5. any other symptoms that concern you C. Please call the office at if you have any concerns or questions about your operation or recovery. D. No smoking! Smoking drastically decreases the chance of a solid fusion. E. Do not take any anti-inflammatory medications (Indocin, Advil, Motrin, Aspirin, Naprosyn, etc.) as these may inhibit the chance of a solid fusion. Tylenol is okay to take for pain. MANAGING PAIN AFTER SPINAL SURGERY 1. Narcotic medication is intended for short-term use and will be provided for surgical pain. Surgical pain usually lasts for a period of 4-6 weeks. Narcotic medication includes Percocet, Vicodin, Darvocet, Tylenol #3 or Lortab. 2. Longer-term pain is more appropriately treated with non-narcotic medication such as Tylenol ES. 3. Muscle spasm is not appropriately treated with narcotics. Muscle relaxers such as Soma, Flexeril or Skelaxin can be used along with Tylenol ES. 4. Remember that we all live with some "aches and pains". This is not unusual or uncommon after an injury or as we get older. a. Back pain is expected and may include muscle spasms for 4 to 6 weeks after surgery. The pain should gradually improve. If the pain worsens for no apparent reason, please contact the office. b. Intermittent leg pain may also be experienced and should not be concerned about unless it worsens for no apparent reason. If so, please contact the office. 5. We will provide appropriate medication within the normal guidelines of their prescribed use. We will also be very cautious and aware of potential abuse and extended duration of patients' medication needs. a. Pain medications are for your comfort and to assist with sleep and rest so that the tissue can heal. They are not provided in order to return to normal activity and should not be used through the day. To do so or worsening pain at night can result from ongoing tissue damage and development of tolerance to the prescribed medicine. 6. Please allow 2-3 days to process refills. Prescriptions will not be mailed but must be picked up at the office. FOLLOW UP VISIT: Keep your scheduled follow-up appointment. Any questions, please call the office at . Pending Studies at Discharge: No Stand-Alone Forms: [facility] [email or web address], Smoking Cessation Medications and DC Order Prescriptions: New tramadol 50 mg tablet 50 mg PO Q6H PRN (Reason: pain, moderate) Qty: 30 RF: 0 oxycodone 5 mg tablet 5 mg PO Q6H PRN (Reason: pain, severe) Qty: 30 RF: 0 Continued multivitamin Tablet 1 tab PO QAM RF: 0 trazodone 50 mg Tablet 0.25 tab PO HS RF: 0 benzonatate 200 mg Capsule 200 mg PO TID PRN (Reason: Cough) RF: 0 lisinopril 20 mg Tablet 30 mg PO QPM RF: 0 ascorbic acid (vitamin C) [Vitamin C] 500 mg Tablet 1,000 mg PO QAM RF: 0 fluticasone propionate [Flonase Allergy Relief] 50 mcg/actuation [place],Suspension 2 spray INTRANASAL QAM RF: 0 Hair, Skin, Nails with Biotin 7.5-7.5-1,250 mg-unit-mcg Tablet,Chewable 1 dose PO QAM RF: 0 famotidine 20 mg Tablet 20 mg PO DAILY PRN (Reason: Heartburn) RF: 0 celecoxib [Celebrex] 200 mg Capsule 200 mg PO BID 30 Days Qty: 60 RF: 1 acetaminophen 500 mg Tablet 500 mg PO HS RF: 0 cholecalciferol (vitamin D3) [Vitamin D3] 125 mcg (5,000 unit) Tablet 10,000 mcg PO QAM RF: 0 tramadol 50 mg tablet 50 mg PO TID RF: 0 ciclopirox [Ciclodan] 8 % Solution 1 applic TOPICAL HS RF: 0 zinc 15 mg Tablet 30 mg PO BID RF: 0 simethicone 1 tab PO TIDWMEAL RF: 0 Discharge Orders: Discharge Order (Routine); Ordered 02/13/22 Ordered By: Hamilton Evans Admission Data Admit Date/Time: 02/11/22 09:31 Attending Provider: Hamilton Evans Admit Provider: Hamilton Evans Primary Care Provider: Moses Cheung Other Providers: Bala [facility]or
== END 2022-02-13 17:30 | disposition home or self-care (01) | DRG 454 ==
LOC: ASU 05:57 → 3E 09:31